=== PATIENT | male | born 1975 | race Caucasian/White ===

== ENCOUNTER 2022-05-29 06:08 | Emergency (ER) | payer OTHER ==
[~2022-05-29] VITALS: Ht 172.7 cm; Wt 97.5 kg
[~2022-05-29 06:08] MED LIST: AUGMENTIN 875-1 EACH PO; CLARITIN10 MG PO; CRUTCH1 EACH; CYCLOBENZAPRINE10 MG PO; IBUPROFEN600 MG PO; ISENTRESS400 MG PO; NAPROSYN500 MG PO; NAPROXEN500 MG PO; NORCO 5-325 TA1 EACH PO; PERCOCET 5-3251 EACH PO; TRUVADA 200 MG1 EACH PO
--- OUTSIDE RECORDS SUMMARY | 2022-05-29 06:10 | XMS ---
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 PHONE: [phone] SHAWNA FLORES Nurse Wanda Current PHONE: Unknown Selena has no Care Guidelines for this patient. Tess VISIT COUNT (12 MO.) 2 Rajinder Beck TOTAL 3 NOTE: Visits indicate total known visits. ED/UCC VISIT TRACKING (12 MO.) 05[facility]2022 06[facility] COMPLAINT: - SO[facility] DIAGNOSES: - Mental Eval - Hallucinations - Hallucinations, unspecified - Brief psychotic disorder 06/27/2021 12[facility]45 [facility] DIAGNOSES: - poss infection - Светлана-orbital Redness - Hordeolum externum left lower eyelid - Abrasion of other part of head, initial encounter INPATIENT VISIT TRACKING (12 MO.) No inpatient visits to display in this time frame [email or web address]
[2022-05-29] MEDS ORDERED: PREDNISONE20 MG PO (08:23)
[2022-05-29] MEDS ORDERED: VENTOLIN HFA18 GM INH (08:23)
== END 2022-05-29 08:52 | disposition home or self-care (01) ==
LOC: ED 06:08
DX: J45.901 Unspecified asthma with (acute) exacerbation (principal); J20.9 Acute bronchitis, unspecified; Z79.899 Other long term (current) drug therapy
CPT/HCPCS: 71045; 87502; 94640; 99285-25; J7512; U0003

== ENCOUNTER 2024-03-11 05:16 | Emergency (ER) | payer OTHER ==
[~2024-03-11] VITALS: Ht 172.7 cm; Wt 103.0 kg
[~2024-03-11 05:16] MED LIST changes: +ADVAIR HFA 115-12 GM INH; +ARIPIPRAZOLE10 MG PO; +PREDNISONE20 MG PO; +SPIRIVA RESPIMAT4 G1 INH; +VENTOLIN HFA18 GM INH
[2024-03-11] MEDS ORDERED: BACTRIM DS TAB1 EACH PO (05:29)
[2024-03-11] MEDS ORDERED: TRIMETHOPRIM/SULFAMETHOXAZOLE 1 EA TAB PO ONE (05:30)
[2024-03-11 05:43] VITALS: BP 137/82
[2024-03-11] MEDS ORDERED: HYDROCODONE BIT/ACETAMINOPHEN 5/325 MG 1 TAB HOME.PACK PO ONE (05:45)
== END 2024-03-11 05:45 | disposition home or self-care (01) ==
LOC: ED 05:16
DX: L98.0 Pyogenic granuloma (principal); L60.0 Ingrowing nail; Z79.899 Other long term (current) drug therapy
CPT/HCPCS: 99283; A9270